=== PATIENT | female | born 1940 | race Caucasian/White ===

== ENCOUNTER 2017-09-13 05:00 | Day surgery (SDC) | payer MEDICARE ==
[2017-09-12 12:31] LABS: HEMATOCRIT 42.2 % (36.0-48.0); HEMOGLOBIN 13.8 g/dL (12-16); MCH 31.9 pg (26.0-34.0); MCHC 32.7 g/dL (31.0-37.0); MCV 97.5 fL (80.0-100.0); MEAN PLATELET VOLUME 9.6 fL (7.4-10.4); RBC 4.33 10x6/uL (4.00-5.40); WBC 4.9 10x3/uL (4.8-10.8)
[~2017-09-13] VITALS: Ht 165.1 cm; Wt 77.1 kg
--- NOTE | ~2017-09-13 | OP ---
PATIENT NAME: MARIBEL JOHNSON MEDICAL RECORD: [id number] :38 LOCATION:D.OPS ADMISSION DATE: SURGEON: GRADY SMYTH DPM DATE OF OPERATION: 09/13/2017 PREOPERATIVE DIAGNOSES: 1. Ankle arthritis, left ankle. 2. HAV, left foot. 3. Hammertoe, left second digit. POSTOPERATIVE DIAGNOSES: 1. Ankle arthritis, left ankle. 2. HAV, left foot. 3. Hammertoe, left second digit. PROCEDURES: 1. Left ankle arthroscopy. 2. Left first met head resection. 3. Left second PIPJ fusion. HEMOSTASIS: Left thigh tourniquet at 350 mmHg. ANESTHESIA: Local with general anesthesia. PREOPERATIVE DETAILS: The patient was taken to the OR and placed on the operating table in supine position. This was followed by induction of general anesthesia and infiltration of local anesthetic around the left ankle as well as the left first ray and second digit. The left extremity was then prepped and draped in usual aseptic technique followed by exsanguination and inflation of tourniquet. A #15 blade was used to create 2 small stab incisions on anterolateral and anteromedial aspects of the left ankle. The incision was deepened down bluntly to the joint capsule, which was punctured with a blunt trocar. A cannula was also introduced in the lateral portal with the camera introduced through the cannula. 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 There was also noted to be significant hypertrophied capsule with impinging capsulitis present. Synovial shaver was introduced in the medial portal and the hypertrophied capsule as well as the chondromalacia were excised. The portals were switched with the camera introduced medially and the synovial shaver laterally and continued debridement was performed. Inspection of the anterior-inferior tibiofibular ligament showed that it was intact; however, there appeared to be quite a bit of scar tissue and hypertrophied capsule around it. This was debrided as well. Once the debridement, which was extensive, was over, the joint looked much better with no impinging capsulitis and chondromalacia was excised. The camera and synovial shaver were removed. The skin was closed with 4-0 Rapide in simple interrupted technique. PROCEDURE NUMBER #2: First met head resection, left foot. A #15 blade was used to create a 3- to 4-cm linear incision over the dorsal aspect of the first metatarsal and extended to the first MPJ. The incision was deepened down to the capsule. A linear capsulotomy was performed and the head of the first metatarsal was delivered. A sagittal saw was used to resect the metatarsal head. Wound was flushed. The capsule was repaired with 2-0 Vicryl, the subcutaneous tissue with 4-0 Rapide, and the skin was closed with 4-0 Rapide in OPERATIVE REPORT [id number] MARIBEL JOHNSON a subcuticular technique followed by Dermabond. PROCEDURE NUMBER #3: PIPJ fusion, left second digit. A #15 blade was used to create 2 semi-elliptical incisions over the dorsal aspect of second PIPJ in transverse fashion. A skin wedge was removed. The extensor longus tendon was transected and head of the proximal phalanx and base of the middle phalanx were exposed. A sagittal saw was used to resect both. Under K-wire guidance, the drill was placed in the proximal phalanx and the middle phalanx and the bone graft was placed in the hole of the proximal phalanx first and then the capital fragment was placed on top of the graft and compressed, giving us excellent alignment as well as rigidity at the fusion site. The extensor longus tendon was repaired with 4-0 Rapide. The skin was repaired with 4-0 Rapide in simple interrupted technique followed by Dermabond. Dermabond was also placed on the wounds on the anterior ankle. Adaptic, 4 x 4, and Conform were used to dress the wound followed by Coban. Tourniquet was deflated. POSTOPERATIVE DETAILS: The patient tolerated the procedure well and left the OR with vital signs stable and vascular status at preop levels. The patient was transported to recovery per anesthesia in stable condition. TRANSINT:[id number] Voice Confirmation ID: [id number] DOCUMENT ID: [id number] GRADY SMYTH DPM CC: [id number] DICTATION DATE: 09/13/17806 MED ADMIN: 09/13/17 1225 [facility] [address] [place] [address]
[2017-09-13 05:34] VITALS: BP 133/65; Ht 165.1 cm; Wt 77.1 kg
[2017-09-13] MEDS ORDERED: BUPROPION XL150 MG PO (05:45)
[2017-09-13] MEDS ORDERED: PRINIVIL20 MG PO (05:45)
[2017-09-13] MEDS ORDERED: RITALIN10 MG PO (05:46)
[2017-09-13] MEDS ORDERED: PROVENTIL HFA6.7 GM INH (05:47)
[2017-09-13] MEDS ORDERED: CYTOMEL5 MCG PO (05:49)
[2017-09-13] MEDS ORDERED: ZETIA10 MG PO (05:49)
[2017-09-13] MEDS ORDERED: HYDROCHLOROTH12.5 M1 PO (05:50)
[2017-09-13] MEDS ORDERED: PAROXETINE HCL10 MG PO (05:50)
== END 2017-09-13 10:10 | disposition home or self-care (01) ==
LOC: D.OPS 05:00
PROVIDERS: Anesthesiology
DX: M13.872 Other specified arthritis, left ankle and foot (principal); M20.12 Hallux valgus (acquired), left foot; M20.42 Other hammer toe(s) (acquired), left foot; Z01.812 Encounter for preprocedural laboratory examination; M94.272 Chondromalacia, left ankle and joints of left foot; M77.52 Other enthesopathy of left foot and ankle